=== PATIENT | female | born 1980 | race Asian ===

== ENCOUNTER 2019-04-10 13:03 | Emergency (ER) | payer OTHER ==
[~2019-04-10] VITALS: Ht 167.6 cm; Wt 80.3 kg
[2019-04-10 13:12] VITALS: TEMP 97.8
[2019-04-10 14:47] VITALS: BP 150/82
== END 2019-04-10 14:50 | disposition home or self-care (01) ==
LOC: ED 13:03
PROC: 0HQGXZZ Repair Left Hand Skin, External Approach (ICD-10-PCS; principal; 2019-04-10)
DX: S61.213A Laceration without foreign body of left middle finger without damage to nail, initial encounter (principal); W26.0XXA Contact with knife, initial encounter; Y92.098 Other place in other non-institutional residence as the place of occurrence of the external cause
CPT/HCPCS: 90471; 90715; 96372; 99283; J0696